=== PATIENT | male | born 1950 | race Caucasian/White ===

== ENCOUNTER 2024-05-23 08:47 | Day surgery (SDC) | payer MEDICARE, OTHER ==
[2024-05-23] MEDS ORDERED: Sodium Chloride 0.9(Preservative Free) 10 ML IJ ONE (08:48)
[2024-05-23] MEDS ORDERED: Decadron 4 MG INJ IV ONE (08:48)
[2024-05-23] MEDS ORDERED: DIPRIVAN 200 MG/20 ML IV ONE ×2 (09:53→10:15)
--- NOTE | 2024-05-23 11:16 | XRAY ---
Indication: Right L4-S1 transforaminal BRANDT. Intraoperative fluoroscopy provided for 35 seconds. 5 digital spot image submitted for interpretation demonstrates posterior needle tips projecting over expected right L4 and L5 nerve roots. Small amount of contrast injected for needle tip placement. Correlate with intraoperative findings/report.
--- NOTE | 2024-05-23 11:35 | XRAY ---
35 seconds of fluoroscopy was used in surgery for a right L4-S1 transforaminal BRANDT.
== END 2024-05-23 10:44 | disposition home or self-care (01) ==
LOC: SDC-PAIN 08:47
PROVIDERS: ATTEND Psychiatry & Neurology Pain Medicine
DX: M54.16 Radiculopathy, lumbar region (principal); R73.03 Prediabetes
CPT/HCPCS: 64483; 64484; 72100; 77003; 82947; J1100; J2704; Q9966

== ENCOUNTER 2024-06-26 09:40 | Day surgery (SDC) | payer MEDICARE, OTHER ==
[2024-06-26] MEDS ORDERED: Sodium Chloride 0.9(Preservative Free) 10 ML IJ ONE (09:41)
[2024-06-26] MEDS ORDERED: Depo-Medrol 40 MG/ML IM ONE (09:41)
[2024-06-26] MEDS ORDERED: DIPRIVAN 200 MG/20 ML IV ONE (12:03)
--- NOTE | 2024-06-26 13:05 | XRAY ---
Indication: Coronal BRANDT. Intraoperative fluoroscopy provided for 18 seconds. 3 digital spot images submitted for interpretation demonstrates collateral needle tip projecting over mid-sacrum. Small amount of contrast injected for needle tip placement. Correlate with intraoperative findings/report.
--- NOTE | 2024-06-26 14:20 | XRAY ---
18 seconds of fluoroscopy was used in surgery for a caudal BRANDT.
== END 2024-06-26 12:34 | disposition home or self-care (01) ==
LOC: SDC-PAIN 09:40
PROVIDERS: ATTEND Psychiatry & Neurology Pain Medicine
DX: M54.16 Radiculopathy, lumbar region (principal); R73.03 Prediabetes
CPT/HCPCS: 72220; 77003; 82947; J2704